=== PATIENT | male | born 1950 | race African-American/Black ===

== ENCOUNTER 2017-03-22 04:25 | Inpatient (IN) ==
[2017-03-22] MEDS ORDERED: MORPHINE 2 MG/1 ML SYRINGE IV STA (05:03)
[2017-03-22] MEDS ORDERED: FUROSEMIDE 100 MG/10 ML VIAL IV STA (05:03)
[2017-03-22] MEDS ORDERED: ASPIRIN 325 MG TABLET PO STA (05:03)
[2017-03-22] MEDS ORDERED: ONDANSETRON 4 MG/2 ML VIAL IV STA (05:03)
[2017-03-22] MEDS ORDERED: cefTRIAXone 1,000 MG in SODIUM CHLORIDE 0.9% 100 ML IV STA (05:03)
[2017-03-22] MEDS ORDERED: methylPREDNISolone SOD SUC 125 MG/2 ML VIAL IV STA (05:03)
[2017-03-22 05:10] LABS: Basophils # 0.1 10*3/uL (0.0-0.2); Basophils % 1.3 % (0.0-0.8); Eosinophils # 0.7 10*3/uL (0.0-0.87); Eosinophils % 12.6 % (0.00-10.9); Hematocrit 44.5 VOL% (42.0-52.0); Hemoglobin 14.2 GM/DL (14.0-18.0); Immature Granulocytes % 0.2 %; Immature Granulocytes Absolute 0.01 #; Lymphocytes # 1.2 10*3/uL (1.4-4.0); Lymphocytes % 22.7 % (21.2-54.2); Mean Corpuscular HGB Conc 31.9 GM/DL (32-36); Mean Corpuscular Hemoglobin 27 PG (27-34); Mean Corpuscular Volume 84.9 FL (87-102); Mean Platelet Volume 9.5 FL (9.6-12.0); Monocytes # 0.7 10*3/uL (0.11-0.8); Neutrophils # 2.7 10*3/uL (1.4-7.4); Neutrophils % 50.2 % (38.7-73.9); Platelet Count 182 T/CUMM (130-400); Red Blood Count 5.24 MC/CUMM (3.8-5.5); Red Cell Distribution Width 13.4 % (9.3-17.3); White Blood Count 5.5 T/CUMM (4-12)
[2017-03-22] MEDS ORDERED: cefTRIAXone 1,000 MG VIAL ONE (05:27)
[2017-03-22] MEDS ORDERED: ASPIRIN 325 MG TABLET ONE (05:28)
[2017-03-22] MEDS ORDERED: methylPREDNISolone SOD SUC 125 MG/2 ML VIAL ONE (05:28)
[2017-03-22] MEDS ORDERED: MORPHINE 2 MG/1 ML SYRINGE ONE (05:28)
[2017-03-22] MEDS ORDERED: FUROSEMIDE 20 MG/2 ML VIAL ONE (05:28)
[2017-03-22] MEDS ORDERED: ALBUTEROL 2.5 MG/3 ML NEB RESP TX SCH (05:30)
[2017-03-22 05:33] LABS: PT Patient Result 10.7 SECS
[2017-03-22 05:34] LABS: Alanine Aminotransferase 17 U/L (16-61); Alkaline Phosphatase 114 U/L (45-117); Aspartate Amino Transferase 23 U/L (0-37); Blood Urea Nitrogen 17 MG/DL (7-18); Calcium 9.2 MG/DL (8.5-10.1); Glucose 104 MG/DL (74-106); Osmolality,Calculated 284.1 MOS/KG (273-304); Potassium 4.6 MMOL/L (3.5-5.1); Sodium 142 MMOL/L (136-145); Total Protein 7.2 G/DL (6.4-8.3); Troponin I Only < 0.015 NG/ML (0.00-0.045)
[2017-03-22 05:49] LABS: Eosinophils 8 % (0-10); Hypochromasia 1+; Lymphocytes 24 % (20-55); Microcytosis Slight; Segmented Neutrophils 56 % (50-85); Total Cells Counted 100
[2017-03-22 05:50] LABS: Ovalocytes Slight; Platelet Estimate Adequate
[2017-03-22] MEDS ORDERED: ACETAMINOPHEN 325 MG TABLET PO PRN (06:10)
[2017-03-22] MEDS ORDERED: ALBUTEROL 2.5 MG/3 ML NEB RESP TX PRN (06:10)
[2017-03-22] MEDS ORDERED: MORPHINE 2 MG/1 ML SYRINGE IV PRN (06:10)
[2017-03-22] MEDS ORDERED: ONDANSETRON 4 MG/2 ML VIAL IV PRN (06:10)
[2017-03-22] MEDS: ENOXAPARIN 40 MG/0.4 ML SYRINGE SUBCUT SCH (08:08)
[2017-03-22] MEDS: cefTRIAXone 1,000 MG in SYRINGE 1 EACH IV SCH (08:08)
[2017-03-22] MEDS: ALBUTEROL/IPRATROPIUM 3 ML NEB RESP TX SCH ×3 (08:20→19:35)
[2017-03-22] MEDS: PANTOPRAZOLE 40 MG TABLET PO SCH (10:49)
[2017-03-22] MEDS: levETIRAcetam 250 MG TABLET PO SCH ×2 (10:50→21:36)
[2017-03-22] MEDS: ASPIRIN EC 81 MG TABLET PO SCH (10:50)
[2017-03-22] MEDS: MAGNESIUM OXIDE 400 MG TABLET PO SCH (10:50)
[2017-03-22] MEDS: methylPREDNISolone SOD SUC 40 MG/1 ML VIAL IV SCH ×3 (13:24→23:10)
[2017-03-23] MEDS: ALBUTEROL/IPRATROPIUM 3 ML NEB RESP TX SCH ×5 (00:15→19:23)
[2017-03-23] MEDS: methylPREDNISolone SOD SUC 40 MG/1 ML VIAL IV SCH ×4 (06:10→23:24)
[2017-03-23 06:11] LABS: Basophils % 0.1 % (0.0-0.8); Hematocrit 38.7 VOL% (42.0-52.0); Hemoglobin 12.3 GM/DL (14.0-18.0); Immature Granulocytes % 0.4 %; Immature Granulocytes Absolute 0.06 #; Lymphocytes # 0.8 10*3/uL (1.4-4.0); Lymphocytes % 5.5 % (21.2-54.2); Mean Corpuscular HGB Conc 31.8 GM/DL (32-36); Mean Corpuscular Hemoglobin 27 PG (27-34); Mean Corpuscular Volume 84.3 FL (87-102); Mean Platelet Volume 9.8 FL (9.6-12.0); Monocytes # 0.8 10*3/uL (0.11-0.8); Monocytes % 5.4 % (1.7-12.7); Neutrophils # 12.8 10*3/uL (1.4-7.4); Neutrophils % 88.6 % (38.7-73.9); Platelet Count 183 T/CUMM (130-400); Red Blood Count 4.59 MC/CUMM (3.8-5.5); Red Cell Distribution Width 13.3 % (9.3-17.3); White Blood Count 14.5 T/CUMM (4-12)
[2017-03-23] MEDS: ENOXAPARIN 40 MG/0.4 ML SYRINGE SUBCUT SCH (06:11)
[2017-03-23 06:53] LABS: Albumin 3.7 G/DL (3.4-5.0); Bilirubin,Total 0.4 MG/DL (0.2-1.0); Calcium 9.3 MG/DL (8.5-10.1); Osmolality,Calculated 279.5 MOS/KG (273-304); Potassium 4.9 MMOL/L (3.5-5.1); Total Protein 6.3 G/DL (6.4-8.3)
[2017-03-23] MEDS ORDERED: cefTRIAXone 1,000 MG in SYRINGE 1 EACH IV SCH (07:00)
[2017-03-23] MEDS: cefTRIAXone 1,000 MG in SYRINGE 1 EACH IV SCH (07:22)
[2017-03-23] MEDS: levETIRAcetam 250 MG TABLET PO SCH ×2 (09:17→21:16)
[2017-03-23] MEDS: MAGNESIUM OXIDE 400 MG TABLET PO SCH (09:17)
[2017-03-23] MEDS: ASPIRIN EC 81 MG TABLET PO SCH (09:17)
[2017-03-23] MEDS: PANTOPRAZOLE 40 MG TABLET PO SCH (09:17)
[2017-03-24] MEDS: methylPREDNISolone SOD SUC 40 MG/1 ML VIAL IV SCH ×2 (06:19→14:04)
[2017-03-24] MEDS: cefTRIAXone 1,000 MG in SYRINGE 1 EACH IV SCH (06:21)
[2017-03-24] MEDS: ENOXAPARIN 40 MG/0.4 ML SYRINGE SUBCUT SCH (06:27)
[2017-03-24] MEDS: ALBUTEROL/IPRATROPIUM 3 ML NEB RESP TX SCH ×2 (07:31→12:43)
[2017-03-24] MEDS: MAGNESIUM OXIDE 400 MG TABLET PO SCH (08:48)
[2017-03-24] MEDS: ASPIRIN EC 81 MG TABLET PO SCH (08:48)
[2017-03-24] MEDS: levETIRAcetam 250 MG TABLET PO SCH (08:48)
[2017-03-24] MEDS: PANTOPRAZOLE 40 MG TABLET PO SCH (08:48)
[2017-03-24 10:58] VITALS: BP 151/84
== END 2017-03-24 13:26 | disposition home or self-care (01) | DRG 192 ==
LOC: EDUNIT# → EDBD → N.ED 04:25 → N.EDINP 06:10 → N.3E 06:37

== ENCOUNTER 2018-04-15 23:17 | Inpatient (IN) ==
[2018-04-15] MEDS ORDERED: ALBUTEROL/IPRATROPIUM 3 ML NEB RESP TX STA (23:45)
[2018-04-15] MEDS ORDERED: methylPREDNISolone SOD SUC 125 MG/2 ML VIAL IV STA (23:45)
[2018-04-16 00:28] LABS: ABG Base Excess -1.7 MMOL/L (-2.5-2.5); ABG Oxygen Saturation 52.4 % (95-100); ABG PH 7.303 (7.35-7.45); ABG TCO2 22.7 MMOL/L (23-27); Allen Test Positive
[2018-04-16 00:35] LABS: ABG PO2 31.9 MM HG (80-95)
[2018-04-16 00:43] LABS: ABG Base Excess -2.9 MMOL/L (-2.5-2.5); ABG HCO3 21.9 MMOL/L (20-26); ABG Oxygen Saturation 95.5 % (95-100); ABG PCO2 42.5 MM HG (35-48); ABG PO2 84.2 MM HG (80-95); ABG TCO2 19.8 MMOL/L (23-27); Allen Test Positive
[2018-04-16 00:44] LABS: ABG PH 7.339 (7.35-7.45)
[2018-04-16 00:45] LABS: Basophils # 0.1 10*3/uL (0.0-0.2); Basophils % 1.3 % (0.0-0.8); Eosinophils # 0.6 10*3/uL (0.0-0.87); Eosinophils % 10.7 % (0.00-10.9); Hematocrit 45.2 VOL% (42.0-52.0); Immature Granulocytes % 0.9 %; Immature Granulocytes Absolute 0.05 #; Lymphocytes # 0.7 10*3/uL (1.4-4.0); Lymphocytes % 12.5 % (21.2-54.2); Mean Corpuscular Hemoglobin 27 PG (27-34); Mean Corpuscular Volume 85.4 FL (87-102); Mean Platelet Volume 10.2 FL (9.6-12.0); Monocytes # 0.8 10*3/uL (0.11-0.8); Monocytes % 13.8 % (1.7-12.7); Neutrophils # 3.4 10*3/uL (1.4-7.4); Neutrophils % 60.8 % (38.7-73.9); Platelet Count 140 T/CUMM (130-400); Red Blood Count 5.29 MC/CUMM (3.8-5.5); Red Cell Distribution Width 13.7 % (9.3-17.3); White Blood Count 5.5 T/CUMM (4-12)
[2018-04-16 01:02] LABS: Alanine Aminotransferase 20 U/L (16-61); Albumin 3.5 G/DL (3.4-5.0); Alkaline Phosphatase 123 U/L (45-117); Aspartate Amino Transferase 20 U/L (0-37); Bilirubin,Total < 0.39 MG/DL (0.2-1.0); Blood Urea Nitrogen 18 MG/DL (7-18); Calcium 8.4 MG/DL (8.5-10.1); Glucose 103 MG/DL (74-106); Osmolality,Calculated 276.7 MOS/KG (273-304); Sodium 138 MMOL/L (136-145); Total Protein 7.4 G/DL (6.4-8.3)
[2018-04-16] MEDS ORDERED: ALBUTEROL/IPRATROPIUM 3 ML NEB RESP TX STA (02:00)
[2018-04-16] MEDS ORDERED: LEVOFLOXACIN INJ 500 MG in PREMIX 1 EACH IV STA (02:02)
[2018-04-16] MEDS ORDERED: diphenhydrAMINE CAP 25 MG CAPSULE PO PRN (04:07)
[2018-04-16] MEDS ORDERED: ACETAMINOPHEN 325 MG TABLET PO PRN (04:07)
[2018-04-16] MEDS ORDERED: ONDANSETRON 4 MG/2 ML VIAL IV PRN (04:07)
[2018-04-16] MEDS ORDERED: MORPHINE 4 MG/1 ML VIAL IV PRN (04:07)
[2018-04-16] MEDS ORDERED: INFLUENZA VIRUS VACCINE 0.5 ML SYRINGE IM ONE (05:38)
[2018-04-16] MEDS: ALBUTEROL/IPRATROPIUM 3 ML NEB RESP TX SCH ×5 (08:23→23:52)
[2018-04-16] MEDS: methylPREDNISolone SOD SUC 40 MG/1 ML VIAL IV SCH ×2 (09:53→20:13)
[2018-04-16] MEDS: PANTOPRAZOLE 40 MG TABLET PO SCH (09:53)
[2018-04-16] MEDS: NICOTINE 21 MG/24 HR PATCH TRANSDERM PRN (09:53)
[2018-04-16] MEDS: amLODIPine 5 MG TABLET PO SCH (10:59)
[2018-04-16] MEDS: ATORVASTATIN 10 MG TABLET PO SCH (20:13)
[2018-04-16] MEDS: levETIRAcetam 250 MG TABLET PO SCH (20:13)
[2018-04-16] MEDS: MONTELUKAST 10 MG TABLET PO SCH (20:14)
[2018-04-17] MEDS: LEVOFLOXACIN INJ 500 MG in PREMIX 1 EACH IV SCH (01:58)
[2018-04-17] MEDS: ALBUTEROL/IPRATROPIUM 3 ML NEB RESP TX SCH ×5 (03:40→20:06)
[2018-04-17] MEDS ORDERED: NON-FORMULARY MEDICATION (Fluticasone/Vilanterol [Breo Ellipta 100-25 Mcg Inh] 1 PUFF) PO SCH (09:00)
[2018-04-17] MEDS: ASPIRIN EC 81 MG TABLET PO SCH (09:36)
[2018-04-17] MEDS: POTASSIUM CHLORIDE 20 MEQ TABLET PO SCH (09:36)
[2018-04-17] MEDS: levETIRAcetam 250 MG TABLET PO SCH ×2 (09:36→20:53)
[2018-04-17] MEDS: amLODIPine 5 MG TABLET PO SCH (09:36)
[2018-04-17] MEDS: PANTOPRAZOLE 40 MG TABLET PO SCH (09:36)
[2018-04-17] MEDS: methylPREDNISolone SOD SUC 40 MG/1 ML VIAL IV SCH ×2 (09:36→20:52)
[2018-04-17] MEDS: ATORVASTATIN 10 MG TABLET PO SCH (20:53)
[2018-04-17] MEDS: MONTELUKAST 10 MG TABLET PO SCH (20:53)
[2018-04-18] MEDS: ALBUTEROL/IPRATROPIUM 3 ML NEB RESP TX SCH ×7 (00:24→23:13)
[2018-04-18] MEDS: LEVOFLOXACIN INJ 500 MG in PREMIX 1 EACH IV SCH (01:10)
[2018-04-18 08:04] LABS: Basophils % 0.1 % (0.0-0.8); Hematocrit 44.4 VOL% (42.0-52.0); Immature Granulocytes % 0.6 %; Immature Granulocytes Absolute 0.06 #; Lymphocytes # 1.2 10*3/uL (1.4-4.0); Lymphocytes % 11.4 % (21.2-54.2); Mean Corpuscular HGB Conc 31.5 GM/DL (32-36); Mean Corpuscular Hemoglobin 27 PG (27-34); Mean Corpuscular Volume 83.9 FL (87-102); Mean Platelet Volume 9.7 FL (9.6-12.0); Monocytes # 0.8 10*3/uL (0.11-0.8); Monocytes % 7.8 % (1.7-12.7); Neutrophils # 8.2 10*3/uL (1.4-7.4); Neutrophils % 80.1 % (38.7-73.9); Platelet Count 161 T/CUMM (130-400); Red Blood Count 5.29 MC/CUMM (3.8-5.5); Red Cell Distribution Width 13.9 % (9.3-17.3); White Blood Count 10.2 T/CUMM (4-12)
[2018-04-18] MEDS: PANTOPRAZOLE 40 MG TABLET PO SCH (08:04)
[2018-04-18] MEDS: levETIRAcetam 250 MG TABLET PO SCH ×2 (08:04→22:29)
[2018-04-18] MEDS: amLODIPine 5 MG TABLET PO SCH (08:05)
[2018-04-18] MEDS: POTASSIUM CHLORIDE 20 MEQ TABLET PO SCH (08:05)
[2018-04-18] MEDS: ASPIRIN EC 81 MG TABLET PO SCH (08:05)
[2018-04-18] MEDS: methylPREDNISolone SOD SUC 40 MG/1 ML VIAL IV SCH (08:05)
[2018-04-18] MEDS: NICOTINE 21 MG/24 HR PATCH TRANSDERM PRN (08:12)
[2018-04-18 08:20] LABS: Calcium 8.9 MG/DL (8.5-10.1); Osmolality,Calculated 276.8 MOS/KG (273-304); Potassium 4.3 MMOL/L (3.5-5.1)
[2018-04-18] MEDS ORDERED: LEVOFLOXACIN 500 MG TABLET PO SCH (14:30)
[2018-04-18] MEDS: MONTELUKAST 10 MG TABLET PO SCH (22:29)
[2018-04-18] MEDS: predniSONE 20 MG TABLET PO SCH (22:29)
[2018-04-18] MEDS: ATORVASTATIN 10 MG TABLET PO SCH (22:30)
[2018-04-18] MEDS: FLUTICASONE/SALMETEROL 250-50 DISKUS 14 DOSE INH SCH (22:30)
[2018-04-19] MEDS: ALBUTEROL/IPRATROPIUM 3 ML NEB RESP TX SCH ×2 (02:51→07:25)
[2018-04-19 06:19] LABS: Basophils % 0.2 % (0.0-0.8); Hematocrit 42.1 VOL% (42.0-52.0); Hemoglobin 13.6 GM/DL (14.0-18.0); Immature Granulocytes % 0.5 %; Immature Granulocytes Absolute 0.05 #; Lymphocytes # 1.1 10*3/uL (1.4-4.0); Lymphocytes % 10.4 % (21.2-54.2); Mean Corpuscular HGB Conc 32.3 GM/DL (32-36); Mean Corpuscular Hemoglobin 27 PG (27-34); Mean Corpuscular Volume 83.9 FL (87-102); Mean Platelet Volume 10.2 FL (9.6-12.0); Monocytes # 0.9 10*3/uL (0.11-0.8); Monocytes % 8.5 % (1.7-12.7); Neutrophils # 8.6 10*3/uL (1.4-7.4); Neutrophils % 80.4 % (38.7-73.9); Platelet Count 179 T/CUMM (130-400); Red Blood Count 5.02 MC/CUMM (3.8-5.5); Red Cell Distribution Width 13.7 % (9.3-17.3); White Blood Count 10.6 T/CUMM (4-12)
[2018-04-19 06:42] LABS: Calcium 8.7 MG/DL (8.5-10.1)
[2018-04-19] MEDS: PANTOPRAZOLE 40 MG TABLET PO SCH (08:13)
[2018-04-19] MEDS: POTASSIUM CHLORIDE 20 MEQ TABLET PO SCH (08:13)
[2018-04-19] MEDS: predniSONE 20 MG TABLET PO SCH (08:13)
[2018-04-19] MEDS: amLODIPine 5 MG TABLET PO SCH (08:13)
[2018-04-19] MEDS: ASPIRIN EC 81 MG TABLET PO SCH (08:13)
[2018-04-19] MEDS: levETIRAcetam 250 MG TABLET PO SCH (08:14)
[2018-04-19] MEDS: FLUTICASONE/SALMETEROL 250-50 DISKUS 14 DOSE INH SCH (08:18)
[2018-04-19] MEDS ORDERED: methylPREDNISolone SOD SUC 40 MG/1 ML VIAL IV SCH (09:00)
[2018-04-19 12:18] VITALS: BP 160/83
== END 2018-04-19 12:39 | disposition home or self-care (01) | DRG 192 ==
LOC: EDUNIT# → N.ED 23:17 → SUATTDRO 04-16 04:07 → N.EDINP 04-16 04:07 → N.5E 04-16 04:29
PROVIDERS: ADMIT Internal Medicine Nephrology; ATTEND Internal Medicine Nephrology

== ENCOUNTER 2019-08-26 05:17 | Observation (INO) ==
[2019-08-26 07:04] LABS: Basophils % 0.3 % (0.0-0.8); Eosinophils # 0.6 10*3/uL (0.0-0.87); Eosinophils % 4.5 % (0.00-10.9); Hematocrit 42.5 VOL% (42.0-52.0); Hemoglobin 13.4 GM/DL (14.0-18.0); Immature Granulocytes % 0.4 %; Immature Granulocytes Absolute 0.05 #; Lymphocytes # 0.8 10*3/uL (1.4-4.0); Lymphocytes % 6.1 % (21.2-54.2); Mean Corpuscular HGB Conc 31.5 GM/DL (32-36); Mean Corpuscular Volume 88.9 FL (87-102); Mean Platelet Volume 9.5 FL (9.6-12.0); Monocytes % 7.2 % (1.7-12.7); Neutrophils % 81.5 % (38.7-73.9); Platelet Count 183 T/CUMM (130-400); Red Blood Count 4.78 MC/CUMM (3.8-5.5); Red Cell Distribution Width 13.2 % (9.3-17.3); White Blood Count 13.5 T/CUMM (4-12)
[2019-08-26 07:18] LABS: Bilirubin,Total 1.5 MG/DL (0.2-1.0); Calcium 8.7 MG/DL (8.5-10.1); Osmolality,Calculated 275.8 MOS/KG (273-304); Total Protein 7.3 G/DL (6.4-8.3)
[2019-08-26 07:24] LABS: Albumin 3.1 G/DL (3.4-5.0)
[2019-08-26 07:32] LABS: Apearance,Urine CLOUDY (Clear); Bacteria,Urine Moderate /HPF (Few); Bilirubin,Urine Negative (Negative); Blood, Urine Large mg/dL (Negative); Glucose,Urine (UA) Negative (Negative); Ketones,Urine Negative (Negative); Nitrite,Urine Positive (Negative); Protein,Urine 100 MG/DL; RBC,Urine 175 /HPF (0-4); Squamous Epithelial Cell,Urine Occasional /HPF (0-10); Urine Color Yellow (Yellow); WBC,Urine 852 /HPF (0-6)
[2019-08-26] MEDS ORDERED: cefTRIAXone 1,000 MG in SODIUM CHLORIDE 0.9% 100 ML IV STA (07:41)
[2019-08-26] MEDS ORDERED: GLUCAGON 1 MG VIAL IM PRN (09:33)
[2019-08-26] MEDS ORDERED: DEXTROSE 10% 250 ML BAG IV PRN (09:33)
[2019-08-26] MEDS ORDERED: ONDANSETRON 4 MG/2 ML VIAL IV PRN (09:40)
[2019-08-26] MEDS ORDERED: ACETAMINOPHEN 325 MG TABLET PO PRN (09:40)
[2019-08-26] MEDS: ENOXAPARIN 40 MG/0.4 ML SYRINGE SUBCUT SCH (11:30)
[2019-08-26] MEDS: ALBUTEROL/IPRATROPIUM 3 ML NEB RESP TX PRN (22:20)
[2019-08-27 06:36] LABS: Basophils # 0.1 10*3/uL (0.0-0.2); Basophils % 0.4 % (0.0-0.8); Eosinophils # 0.2 10*3/uL (0.0-0.87); Eosinophils % 1.1 % (0.00-10.9); Hematocrit 40.4 VOL% (42.0-52.0); Hemoglobin 12.9 GM/DL (14.0-18.0); Immature Granulocytes % 0.4 %; Immature Granulocytes Absolute 0.06 #; Lymphocytes # 1.1 10*3/uL (1.4-4.0); Lymphocytes % 7.7 % (21.2-54.2); Mean Corpuscular HGB Conc 31.9 GM/DL (32-36); Mean Corpuscular Volume 86.7 FL (87-102); Mean Platelet Volume 10.2 FL (9.6-12.0); Neutrophils % 79.4 % (38.7-73.9); Platelet Count 174 T/CUMM (130-400); Red Blood Count 4.66 MC/CUMM (3.8-5.5); Red Cell Distribution Width 13.3 % (9.3-17.3); White Blood Count 13.7 T/CUMM (4-12)
[2019-08-27 07:27] LABS: Calcium 8.8 MG/DL (8.5-10.1); Osmolality,Calculated 274.7 MOS/KG (273-304)
[2019-08-27] MEDS: cefTRIAXone 1,000 MG in SYRINGE 1 EACH IV SCH (08:23)
[2019-08-27] MEDS: NICOTINE 21 MG/24 HR PATCH TRANSDERM SCH (08:23)
[2019-08-27] MEDS: PANTOPRAZOLE 40 MG TABLET PO SCH (08:23)
[2019-08-27] MEDS: ALBUTEROL/IPRATROPIUM 3 ML NEB RESP TX PRN ×3 (08:52→20:20)
[2019-08-27] MEDS: ENOXAPARIN 40 MG/0.4 ML SYRINGE SUBCUT SCH (12:19)
[2019-08-28 06:57] LABS: Basophils % 0.4 % (0.0-0.8); Eosinophils # 0.4 10*3/uL (0.0-0.87); Eosinophils % 5.3 % (0.00-10.9); Hematocrit 40.1 VOL% (42.0-52.0); Hemoglobin 12.9 GM/DL (14.0-18.0); Immature Granulocytes % 0.5 %; Immature Granulocytes Absolute 0.04 #; Lymphocytes # 0.9 10*3/uL (1.4-4.0); Lymphocytes % 11.3 % (21.2-54.2); Mean Corpuscular HGB Conc 32.2 GM/DL (32-36); Mean Corpuscular Volume 86.4 FL (87-102); Mean Platelet Volume 9.9 FL (9.6-12.0); Monocytes % 12.5 % (1.7-12.7); Platelet Count 147 T/CUMM (130-400); Red Blood Count 4.64 MC/CUMM (3.8-5.5); Red Cell Distribution Width 13.2 % (9.3-17.3); White Blood Count 8.2 T/CUMM (4-12)
[2019-08-28] MEDS: ALBUTEROL/IPRATROPIUM 3 ML NEB RESP TX PRN (07:03)
[2019-08-28 07:18] LABS: Calcium 9.1 MG/DL (8.5-10.1); Osmolality,Calculated 267.2 MOS/KG (273-304)
[2019-08-28 08:49] VITALS: BP 125/76
[2019-08-28] MEDS: NICOTINE 21 MG/24 HR PATCH TRANSDERM SCH (09:01)
[2019-08-28] MEDS: PANTOPRAZOLE 40 MG TABLET PO SCH (09:01)
[2019-08-28] MEDS: cefTRIAXone 1,000 MG in SYRINGE 1 EACH IV SCH (09:02)
== END 2019-08-28 09:41 | disposition home or self-care (01) ==
LOC: EDBD → EDUNIT# → N.EDINP 05:17 → N.ED 05:17 → SUATTDRO 08:42 → N.3E 10:43
PROVIDERS: ADMIT Internal Medicine; ATTEND Internal Medicine Geriatric Medicine